=== PATIENT | female | born 1970 | race Two or more races ===

== ENCOUNTER 2025-09-05 09:29 | Inpatient (IN) | payer BC, OTHER ==
[~2025-09-05] VITALS: Ht 157.5 cm; Wt 96.3 kg
--- NOTE | 2025-09-05 10:00 | ED.PDOC ---
GI ASSESSMENT HPI Comments A 55 YEAR OLD FEMALE PRESENTS TO THE ED WITH COMPLAINT OF ABDOMINAL PAIN. PT STATES SHE HAS BEEN HAVING DIFFUSE LOWER ABD PAIN FOR THE PAST 3X DAYS. PT STATES SHE RECENTLY STARTED NEW NUTRITION PROGRAM AND HAS BEEN EATING MORE PROTEIN. PT OTHERWISE STATES SHE HAS HISTORY OF COLON CANCER IN REMISSION. PT HAD RECENT COLONOSCOPY AND STATES SHE HAD POLYPS REMOVED. PT PATIENT DENIES FEVER, CHILLS, SHORTNESS OF BREATH, CHEST PAIN, NAUSEA, VOMITING, HEADACHE, OR OTHER COMPLAINTS. NO OTHER SYMPTOMS OR MODIFYING FACTORS AT THIS TIME. PATIENT IS ALERT, ORIENTED X 4, AND HAS STEADY GAIT. Chief Complaint: Constipation Time Seen by MD: 09:54 Reviewed Notes: Nurses Notes, Medications, Allergies Allergies: Coded Allergies: Metoclopramide (Verified Allergy, Unknown, 09/05/25) Information Source: Patient Mode of Arrival: Ambulatory Timing: Days Duration: Since onset, Days Prehospital treatment: None Quality: Aching, Cramping, Colicky Vomitus: None Stool: Other Severity: Moderate Recent: None Recent Hx of: None Pain Location: Diffuse, RLQ, LLQ Modifying Factors: Nothing Associated sign and symptoms: Abdominal Pain Past Medical History PAST MEDICAL HISTORY: Denies Surgical History: Cholecystectomy TUTORING MANAGER History: Denies all TUTORING MANAGER Hx Family History Family History: Reviewed,noncontributory to illness Social History Smoker: Non-Smoker Alcohol: Denies ETOH Use Drugs: Denies Drug Use Lives In: Home Constitutional: denies: chills, diaphoresis, fatigue, fever, malaise, sweats, weakness, others EENTM: denies: blurred vision, double vision, ear bleeding, ear discharge, ear drainage, ear pain, ear ringing, eye pain, eye redness, hearing loss, mouth pain, mouth swelling, nasal discharge, nose bleeding, nose congestion, nose pain, photophobia, tearing, throat pain, throat swelling, voice changes, others Respiratory: denies: cough, hemoptysis, orthopnea, SOB at rest, shortness of breath, SOB with excertion, stridor, wheezing, others Cardiovascular: denies: chest pain, dizzy spells, diaphoresis, Dyspnea on exertion, edema, irregular heart beat, left arm pain, lightheadedness, palpitations, PND, syncope, others Gastrointestinal: reports: abdominal pain; denies: abdomen distended, blood streaked bowels, constipated, diarrhea, dysphagia, difficulty swallowing, hematemesis, melena, nausea, poor appetite, poor fluid intake, rectal bleeding, rectal pain, vomiting, others Genitourinary: denies: abnormal vagina bleeding, burning, dyspareunia, dysuria, flank pain, frequency, hematuria, incontinence, pain, , vagina discharge, urgency, others Neurological: denies: dizziness, fainting, headache, left sided numbness, left sided weakness, numbness, paresthesia, pre-existing deficit, right sided numbness, right sided weakness, seizure, speech problems, tingling, tremors, weakness, others Musculoskeletal: denies: back pain, gout, joint pain, joint swelling, muscle pain, muscle stiffness, neck pain, others Integumetry: denies: bruises, change in color, change in hair/nails, dryness, laceration, lesions, lumps, rash, wounds, others Allergic/Immunocompromised: denies: Difficulty Healing, Frequent Infections, Hives, Itching, others Hematologic/Lymphatic: denies: anemia, blood clots, easy bleeding, easy bruising, swollen glands, others Endocrine: denies: excessive hunger, excessive sweating, excessive thirst, excessive urination, flushing, intolerance to cold, intolerance to heat, unexplained weight gain, unexplained weight loss, others Psychiatric: denies: anxiety, bipolar disorder, depression, hopeless, panic disorder, schizophrenia, sleepless, suicidal, others All Other Systems: Reviewed and Negative Physical Exam General Appearance: No Apparent Distress, Obese HEENT: Normal ENT Inspection, PERRL/EOMI, Pharynx Normal, TMs Normal Neck: Full Range of Motion, Non-Tender, Normal, Normal Inspection Respiratory: Chest Non-Tender, Lungs Clear, No Accessory Muscle Use, No Respiratory Distress, Normal Breath Sounds Cardiovascular: No Edema, No JVD, No Murmur, No Gallop, Normal Peripheral Pulses, Regular Rate/Rhythm Breast Exam: Deferred Gastrointestinal: Distended (LOWER ABD WITH MILD DISTENTION, NO GUARDING AND REBOUND TENDERNESS. ), LLQ, No Organomegaly, No Pulsatile Mass, Normal Bowel Sounds, RLQ, Soft, Tenderness (LOWER ABD WITH MILD DISTENDED ABD. ) Genitalia: Deferred Pelvic: Normal External Exam Rectal: Deferred Extremities: No calf tenderness, Normal capillary refill, Normal inspection, Normal range of motion, Non-tender, No pedal edema Musculoskeletal : Apperance: Normal Neurologic: Alert, technology assistant II-XII nml as Tested, No Motor Deficits, Normal Affect, Normal Mood, No Sensory Deficits Cerebellar Function: Normal Reflexes: Normal Skin: Dry, Normal Color, Warm Peripheral Pulses: 2+ carotid (R), 2+ carotid (L) Lymphatic: No Adenopathy Was a procedure done? Was a procedure done?: No GI differential Dx Differential Diagnosis: Constipation, Diverticular disease, Esophagitis, Gastritis/PUD, Gastroenteritis, Inflammatory BD, Pancreatitis, UTI, Food Poisoning, Bacterial, Viral X-Ray, Labs, Meds, VS Vital Signs Date Time Temp Pulse Resp B/P (MAP) Pulse Ox O2 Delivery O2 Flow Rate FiO2 09/05/25 15:44 77 16 115/49 (71) 97 09/05/25 13:18 76 16 110/46 (67) 98 09/05/25 11:30 98.2 87 18 112/56 (74) 96 98.2 09/05/25 11:30 87 18 96 Room Air 09/05/25 09:35 98.5 86 18 123/74 95 98.5 Lab Test 09/05/25 10:40 09/05/25 10:22 Range/Units White Blood Count 9.8 4.4-10.8 10^3/uL Red Blood Count 4.74 4.0-5.20 10^6/uL Hemoglobin 13.9 12.2-16.2 g/dL Hematocrit 41.5 36.0-46.0 % Mean Corpuscular Volume 87.5 80.0-100.0 fL Mean Corpuscular Hemoglobin 29.4 28.0-32.0 pg Mean Corpuscular Hemoglobin Concent 33.6 32.0-36.0 g/dL Red Cell Distribution Width 12.9 11.8-14.3 % Platelet Count 227 140-450 10^3/uL Mean Platelet Volume 8.6 6.9-10.8 fL Neutrophils (%) (Auto) 66.2 37.0-80.0 % Lymphocytes (%) (Auto) 20.9 10.0-50.0 % Monocytes (%) (Auto) 9.7 0.0-12.0 % Eosinophils (%) (Auto) 2.3 0.0-7.0 % Basophils (%) (Auto) 0.9 0.0-2.0 % Neutrophils # (Auto) 6.5 1.6-8.6 10 ^3/uL Lymphocytes # (Auto) 2.1 0.4-5.4 10 ^3/uL Monocytes # (Auto) 1.0 0-1.3 10 ^3/uL Eosinophils # (Auto) 0.2 0-0.8 10 ^3/uL Basophils # (Auto) 0.1 0-0.2 10 ^3/uL Nucleated Red Blood Cells 0.0 % Sodium Level 142 136-145 mmol/L Potassium Level 3.7 3.5-5.1 mmol/L Chloride Level 105 98-107 mmol/L Carbon Dioxide Level 26 20-31 mmol/L Anion Gap 11 5-15 Blood Urea Nitrogen 9 9-23 mg/dL Creatinine 0.74 0.550-1.02 mg/dL Glomerular Filtration Rate Calc 96 >90 mL/min BUN/Creatinine Ratio 12.2 10.0-20.0 Serum Glucose 114 H 74-106 mg/dL Calcium Level 9.5 8.7-10.4 mg/dL Total Bilirubin 0.8 0.2-1.0 mg/dL Aspartate Amino Transferase (AST) 53 H 13-40 U/L Alanine Aminotransferase (ALT) 93 H 7-40 U/L Alkaline Phosphatase 145 H 46-116 U/L Total Protein 8.0 5.7-8.2 g/dL Albumin 4.8 3.2-4.8 g/dL Lipase 33 12-53 U/L Urine Color Yellow Yellow Urine Clarity Clear Clear Urine pH 6.0 5.0-9.0 Urine Specific [place] 1.012 1.001-1.035 Urine Protein Negative Negative Urine Ketones Negative Negative Urine Blood Trace H Negative /uL Urine Nitrite Negative Negative Urine Bilirubin Negative Negative Urine Urobilinogen Normal Negative mg/dL Urine Leukocyte Esterase Negative Negative /uL Urine Glucose Normal Normal mg/dL Current Medications Medications (Trade) Dose Ordered Sig/Mark Route Start Time Stop Time Status Last Admin Sodium Chloride 1,000 ml @ 1,000 mls/hr Q1H ONCE IV 09/05/25 11:15 09/05/25 12:14 DC 09/05/25 11:52 Metronidazole 100 ml @ 100 mls/hr ONCE ONCE IV 09/05/25 11:15 09/05/25 12:14 DC 09/05/25 11:51 Levofloxacin/ Dextrose 100 ml @ 100 mls/hr ONCE ONCE IV 09/05/25 11:15 09/05/25 12:14 DC 09/05/25 11:51 Ketorolac Tromethamine (Toradol Injection) 30 mg ONCE ONCE IV 09/05/25 11:15 09/05/25 11:17 DC 09/05/25 11:51 PATIENT: VITALY HUFFCT: [id number]: [id number] : 1970 LOC: ER ROOM / BED: / AGE / SEX: 55 / F ADM STATUS: REG ER SERVICE [id number] ORDERING PHYSICIAN: PAUL SUTTON PROCEDURE(s): ABPL - CT AB PEL WO CON-NO ORAL OR IV REASON: LOWER ABD PAIN WITH POSSIBLE CONSTIPATION ORDER NUMBER(s): [id number], ACCESSION NUMBER(s): [id number] Indication: LOWER ABD PAIN WITH POSSIBLE CONSTIPATION Comparison: None Technique: Helical axial scans were performed through the abdomen and pelvis without intravenous contrast. Subsequently, coronal and sagittal reformations were obtained. Dose lowering techniques have been used including automated exposure control and adjustment of mA and/or kv according to patient size. FINDINGS: Limited evaluation of the vasculature and solid organs due to lack of intravenous contrast. LUNGS BASES: Clear LIVER: Incidental hypoattenuating lesion in the left hepatic lobe measuring 7.4 cm, suboptimally evaluated without intravenous contrast. SPLEEN: Normal GALLBLADDER: Surgically absent. PANCREAS: Normal ADREN left adrenal nodule measuring 1.9 cm with density measurement compatible with an adenoma. AL GLANDS: Normal KIDNEYS: No hydronephrosis or obstructing renal stone. GI: Acute diverticulitis involving the sigmoid colon. No bowel dilation. Appendix not discretely visualized. LYMPH NODES: Normal VASCULAR STRUCTURES: Normal BLADDER: Partially contracted and grossly unremarkable. PELVIC ORGAN: Normal FREE AIR OR FREE FLUID: None OSSEOUS STRUCTURES: Normal SOFT TISSUES: Normal DLP is 1374.1mGy-cm. CTDI vol is 24.5mGy. IMPRESSION: 1. Acute sigmoid diverticulitis. 2. No free air or fluid collection. 3. Incidental hypoattenuating lesion in the left hepatic lobe measuring 7.4 cm, suboptimally evaluated without intravenous contrast. Nonemergent follow-up CT or MRI liver mass protocol recommended for further evaluation. 4. Left adrenal adenoma measuring 1.9 cm. ATED BY: SEBASTIÁN MCKEON MD DICTATED DATE/TIME: 09/05/25 1016 SIGNED BY: SEBASTIÁN MCKEON MD SIGNED DATE/TIME: 09/05/25 1016 CC: X-Ray, Labs, Meds, VS Comment COURSE: EXTERNAL MEDICAL RECORDS REVIEWED: [NONE] INDEPENDENT HISTORIANS: [NONE] SOCIAL DETERMINANTS OF HEALTH: [NONE] LABS ORDERED: CBC, CMP, LIPASE, UA REVIEWED AND INTERPRETED RESULTS: NORMAL EXCEPT ELEVATED LIVER ENZYME. IMAGING ORDERED: CT ABDOMEN PELVIS WITHOUT CONTRAST TREATMENTS ORDERED: 0.9 NS 1L, FLAGYL 500MG IVP, LEVAQUIN 500MG IVP AND TORADOL 30MG IVP PROCEDURES PERFORMED: NONE CRITICAL CARE TIME: NONE I HAVE DISCUSSED THE PATIENT WITH THE ATTENDING PHYSICIAN, DR. HAAS SHE AGREES WITH THE PATIENT'S PLAN OF CARE AND DISPOSITION. PT IS BEING ADMITTED FOR SIGMOID DIVERTICULITIS. PT NEEDS FURTHER WORK UP AND GI CONSULTATION. Time of 1ST Reevaluation: 11:00 Reevaluation 1ST: Unchanged Patient Education/Counseling: Diagnosis, Treatment Family Education/Counseling: Diagnosis, Treatment, No Family Present SEPSIS Sepsis Screen Date sepsis recognized/suspect: Sep 05, 2025 Time Sepsis recognized/suspect: 935 Recent Procedure: No On Antibiotic Therapy: No Respiratory Rate >20: No Heart Rate >90: No Temp<36 C (96.8 F) or >38.3 C: No SBP <90 or MAP <65 mmHG: No New Acute Mental Status Change: No Is the patient on CPAP, BIPAP,: No Physician Orders Ct Ab Pel Wo Con-No Oral Or Iv (09/05/25 09:47) Heplock Iv (09/05/25 ) Admit (09/05/25 16:08) Code Status (09/05/25 16:08) Sodium Chloride 0.9% (09/05/25 16:15) Complete Blood Count (09/06/25 04:00) Comprehensive Metabolic Panel (09/06/25 04:00) Clear Liq Diet (09/05/25 Dinner) Morphine Sulfate Injection (09/05/25 16:15) Notify Md Of Changes From Base (09/05/25 16:08) Ceftriaxone 1gm/50ml (Rocephin) (09/05/25 16:15) Metronidazole 500mg/100ml (Flagyl 500mg/ (09/05/25 16:15) Pantoprazole (Protonix) (09/05/25 16:15) LIVER (09/05/25 16:12) Vital Signs Date Time Temp Pulse Resp B/P (MAP) Pulse Ox O2 Delivery O2 Flow Rate FiO2 09/05/25 15:44 77 16 115/49 (71) 97 09/05/25 13:18 76 16 110/46 (67) 98 09/05/25 11:30 98.2 87 18 112/56 (74) 96 98.2 09/05/25 11:30 87 18 96 Room Air 09/05/25 09:35 98.5 86 18 123/74 95 98.5 Laboratory Tests Test 09/05/25 10:40 White Blood Count 9.8 10^3/uL (4.4-10.8) Medications Medications Dose Ordered Sig/Mark Route Start Time Stop Time Status Last Admin Dose Admin Ketorolac Tromethamine 30 mg ONCE ONCE IV 09/05/25 11:15 09/05/25 11:17 DC 09/05/25 11:51 Levofloxacin/ Dextrose 100 ml @ 100 mls/hr ONCE ONCE IV 09/05/25 11:15 09/05/25 12:14 DC 09/05/25 11:51 Metronidazole 100 ml @ 100 mls/hr ONCE ONCE IV 09/05/25 11:15 09/05/25 12:14 DC 09/05/25 11:51 Sodium Chloride 1,000 ml @ 1,000 mls/hr Q1H ONCE IV 09/05/25 11:15 09/05/25 12:14 DC 09/05/25 11:52 Departure 1 Departure Time of Disposition: 11:00 Impression: Primary Impression: Acute diverticulitis Additional Impressions: Liver lesion, left lobe Adrenal adenoma Qualified Codes: D35.02 - Benign neoplasm of left adrenal gland Disposition: ADMITTED INPATIENT Condition: Serious Critical Care Note Critical Care Time?: No Stability Stability form required: Yes Unstable for transfer: Requires medication, ED Physician Assesment, Possible rapid decline Heart Score Heart Score: Heart Score Response (Comments) Value History N/A 0 EKG N/A 0 Age N/A 0 Risk Factors N/A 0 Troponin N/A 0 Total 0 I personally scribed for PAUL SUTTON ([email or web address]) on 09/05/25 at 10:00. Electronically submitted by Dandy Frausto ([email or web address]). I personally scribed for PAUL SUTTNO ([email or web address]) on 09/05/25 at 10:01. Electronically submitted by Dandy Frausto ([email or web address]). PAUL SUTTON Sep 05, 2025 10:00
--- NOTE | 2025-09-05 10:19 | DVH ---
Indication: LOWER ABD PAIN WITH POSSIBLE CONSTIPATION Comparison: None Technique: Helical axial scans were performed through the abdomen and pelvis without intravenous cont rast. Subsequently, coronal and sagittal reformations were obtained. Dose lowering techniques have been used including automated exposure control and adjustment of mA and /or kv according to patient size. FINDINGS: Limited evaluation of the vasculature and solid organs due to lack of intravenous contrast. LUNGS BASES: Clear LIVER: Incidental hypoattenuating lesion in the left hepatic lobe measuring 7.4 cm, suboptimally eval uated without intravenous contrast. SPLEEN: Normal GALLBLADDER: Surgically absent. PANCREAS: Normal ADREN left adrenal nodule measuring 1.9 cm with density measurement compatible with an adenoma. AL GL ANDS: Normal KIDNEYS: No hydronephrosis or obstructing renal stone. GI: Acute diverticulitis involving the sigmoid colon. No bowel dilation. Appendix not discretely vis ualized. LYMPH NODES: Normal VASCULAR STRUCTURES: Normal BLADDER: Partially contracted and grossly unremarkable. PELVIC ORGAN: Normal FREE AIR OR FREE FLUID: None OSSEOUS STRUCTURES: Normal SOFT TISSUES: Normal DLP is 1374.1mGy-cm. CTDI vol is 24.5mGy. IMPRESSION: 1. Acute sigmoid diverticulitis. 2. No free air or fluid collection. 3. Incidental hypoattenuating lesion in the left hepatic lobe measuring 7.4 cm, suboptimally evaluate d without intravenous contrast. Nonemergent follow-up CT or MRI liver mass protocol recommended for f urther evaluation. 4. Left adrenal adenoma measuring 1.9 cm.
[2025-09-05 10:49] LABS: Hematocrit 41.5 % (36.0-46.0); Hemoglobin 13.9 g/dL (12.2-16.2); Mean Corpuscular Hemoglobin 29.4 pg (28.0-32.0); Mean Corpuscular Volume 87.5 fL (80.0-100.0); Nucleated Red Blood Cells % 0.0 %
[2025-09-05 11:03] LABS: Albumin 4.8 g/dL (3.2-4.8); Anion Gap 11 (5-15); BUN/Creatinine Ratio 12.2 (10.0-20.0); Calcium 9.5 mg/dL (8.7-10.4); Carbon Dioxide 26 mmol/L (20-31); Chloride 105 mmol/L (98-107); Potassium 3.7 mmol/L (3.5-5.1); Sodium 142 mmol/L (136-145); Total Protein 8.0 g/dL (5.7-8.2)
[2025-09-05 11:04] LABS: Alanine Aminotransferase 93 U/L (7-40); Alkaline Phosphatase 145 U/L (46-116); Bilirubin, Total 0.8 mg/dL (0.2-1.0); Blood Urea Nitrogen 9 mg/dL (9-23); Glucose 114 mg/dL (74-106)
[2025-09-05 11:26] LABS: Urine Protein, UAD Negative (Negative)
[2025-09-05] MEDS: KETOROLAC TROMETH 30 MG/ML 1ML VIAL IV ONE (11:51)
[2025-09-05 11:52] LABS: Lipase 33 U/L (12-53)
[2025-09-05] MEDS: SODIUM CHLORIDE 0.9% 1,000 ML IV ONE (11:52)
--- NOTE | 2025-09-05 16:12 | DVHHP2 ---
BRIGID MYERS RESIDENT 09/05/25 1612: History of Present Illness History of Present Illness Patient is 55 years old female with past medical history of colon polyp, GERD, insomnia, anxiety, hyperlipidemia came with a complaint of abdominal pain. As per patient she has been having abdominal pain started 3 days before, gradual onset, 08/08, crampy in nature, increased with the movement, no relieving factor. Patient denied any acute nausea or vomiting or diarrhea or fever, joint pain or swelling or eating abdominal food. Patient reported she had colonoscopy done in June [address] Ivey which revealed 2 polyps was removed. Patient patient reported her father had colon cancer. Initial lab workup revealed transaminitis with AST 53, ALT 93, alkaline phosphatase 145. Lipase with a normal limit. CT abdomen and pelvis revealed-Acute sigmoid diverticulitis. Incidental hypoattenuating lesion in the left hepatic lobe measuring 7.4 cm, suboptimally evaluated without intravenous contrast. Nonemergent follow-up CT or MRI liver mass protocol recommended for further evaluation.Left adrenal adenoma measuring 1.9 cm. PMH-colon polyp, GERD, insomnia, anxiety, hyperlipidemia PSH- none F/H-dad had colon cancer Allergy- metoclopramide Personal History/ Social History- Review of Systems Review of Systems Cardiovascular- deny acute chest pain or shortness of breath or cough or palpitation Musculoskeletal-denies acute joint swelling or tenderness or redness Neurological- denies acute dysarthria, dysphagia, change in vision Psychiatry- denies depression or SI or HI Skin- denies acute rash or purpura Allergies: Coded Allergies: Metoclopramide (Verified Allergy, Unknown, 09/05/25) Medications Current Medications Medications Dose Ordered Sig/Mark Route Start Time Stop Time Status Last Admin Dose Admin Sodium Chloride 1,000 ml @ 60 mls/hr [id number] IV 09/05/25 16:15 UNV Morphine Sulfate 2 mg Q4HPRN PRN IV 09/05/25 16:15 UNV Exam Vital Signs Vital Signs Date Time Temp Pulse Resp B/P (MAP) Pulse Ox O2 Delivery O2 Flow Rate FiO2 09/05/25 15:44 77 16 115/49 (71) 97 09/05/25 11:30 98.2 98.2 09/05/25 11:30 Room Air Exam General examination- awake, alert, oriented HEENT- PEERLA, no acute nasal discharge Cardiovascular- S1-S2 audible, rate and rhythm regular, no murmur Respiratory- CTAB, no wheeze or rhonchi Gastrointestinal-diffuse abdominal tenderness present++, bowel sound+. Nondistended Musculoskeletal-no acute joint swelling or tenderness or redness Lower extremity- no leg edema Neurological- cranial nerves intact, no acute dysarthria or dysphagia Psychiatry- denies depression or SI or HI Skin- no acute rash or purpura Labs/Xrays Labs Test 09/05/25 10:40 09/05/25 10:22 Range/Units White Blood Count 9.8 4.4-10.8 10^3/uL Red Blood Count 4.74 4.0-5.20 10^6/uL Hemoglobin 13.9 12.2-16.2 g/dL Hematocrit 41.5 36.0-46.0 % Mean Corpuscular Volume 87.5 80.0-100.0 fL Mean Corpuscular Hemoglobin 29.4 28.0-32.0 pg Mean Corpuscular Hemoglobin Concent 33.6 32.0-36.0 g/dL Red Cell Distribution Width 12.9 11.8-14.3 % Platelet Count 227 140-450 10^3/uL Mean Platelet Volume 8.6 6.9-10.8 fL Neutrophils (%) (Auto) 66.2 37.0-80.0 % Lymphocytes (%) (Auto) 20.9 10.0-50.0 % Monocytes (%) (Auto) 9.7 0.0-12.0 % Eosinophils (%) (Auto) 2.3 0.0-7.0 % Basophils (%) (Auto) 0.9 0.0-2.0 % Neutrophils # (Auto) 6.5 1.6-8.6 10 ^3/uL Lymphocytes # (Auto) 2.1 0.4-5.4 10 ^3/uL Monocytes # (Auto) 1.0 0-1.3 10 ^3/uL Eosinophils # (Auto) 0.2 0-0.8 10 ^3/uL Basophils # (Auto) 0.1 0-0.2 10 ^3/uL Nucleated Red Blood Cells 0.0 % Sodium Level 142 136-145 mmol/L Potassium Level 3.7 3.5-5.1 mmol/L Chloride Level 105 98-107 mmol/L Carbon Dioxide Level 26 20-31 mmol/L Anion Gap 11 5-15 Blood Urea Nitrogen 9 9-23 mg/dL Creatinine 0.74 0.550-1.02 mg/dL Glomerular Filtration Rate Calc 96 >90 mL/min BUN/Creatinine Ratio 12.2 10.0-20.0 Serum Glucose 114 H 74-106 mg/dL Calcium Level 9.5 8.7-10.4 mg/dL Total Bilirubin 0.8 0.2-1.0 mg/dL Aspartate Amino Transferase (AST) 53 H 13-40 U/L Alanine Aminotransferase (ALT) 93 H 7-40 U/L Alkaline Phosphatase 145 H 46-116 U/L Total Protein 8.0 5.7-8.2 g/dL Albumin 4.8 3.2-4.8 g/dL Lipase 33 12-53 U/L Urine Color Yellow Yellow Urine Clarity Clear Clear Urine pH 6.0 5.0-9.0 Urine Specific [place] 1.012 1.001-1.035 Urine Protein Negative Negative Urine Ketones Negative Negative Urine Blood Trace H Negative /uL Urine Nitrite Negative Negative Urine Bilirubin Negative Negative Urine Urobilinogen Normal Negative mg/dL Urine Leukocyte Esterase Negative Negative /uL Urine Glucose Normal Normal mg/dL SEPSIS Sepsis Screen Date sepsis recognized/suspect: Sep 05, 2025 Time Sepsis recognized/suspect: 935 Recent Procedure: No On Antibiotic Therapy: No Respiratory Rate >20: No Heart Rate >90: No Temp<36 C (96.8 F) or >38.3 C: No SBP <90 or MAP <65 mmHG: No New Acute Mental Status Change: No Is the patient on CPAP, BIPAP,: No Physician Orders Ct Ab Pel Wo Con-No Oral Or Iv (09/05/25 09:47) Heplock Iv (09/05/25 ) Admit (09/05/25 16:08) Code Status (09/05/25 16:08) Sodium Chloride 0.9% (09/05/25 16:15) Complete Blood Count (09/06/25 04:00) Comprehensive Metabolic Panel (09/06/25 04:00) Clear Liq Diet (09/05/25 Dinner) Morphine Sulfate Injection (09/05/25 16:15) Notify Of Changes From Base (09/05/25 16:08) Ceftriaxone Ivpb Rocephin (09/05/25 16:15) Metronidazole Ivpb Flagyl (09/05/25 16:15) Pantoprazole (Protonix) (09/05/25 16:15) Vital Signs Date Time Temp Pulse Resp B/P (MAP) Pulse Ox O2 Delivery O2 Flow Rate FiO2 09/05/25 15:44 77 16 115/49 (71) 97 09/05/25 13:18 76 16 110/46 (67) 98 09/05/25 11:30 98.2 87 18 112/56 (74) 96 98.2 09/05/25 11:30 87 18 96 Room Air 09/05/25 09:35 98.5 86 18 123/74 95 98.5 Laboratory Tests Test 09/05/25 10:40 White Blood Count 9.8 10^3/uL (4.4-10.8) Medications Medications Dose Ordered Sig/Mark Route Start Time Stop Time Status Last Admin Dose Admin Ketorolac Tromethamine 30 mg ONCE ONCE IV 09/05/25 11:15 09/05/25 11:17 DC 09/05/25 11:51 30 MG Levofloxacin/ Dextrose 100 ml @ 100 mls/hr ONCE ONCE IV 09/05/25 11:15 09/05/25 12:14 DC 09/05/25 11:51 100 MLS/HR Metronidazole 100 ml @ 100 mls/hr ONCE ONCE IV 09/05/25 11:15 09/05/25 12:14 DC 09/05/25 11:51 100 MLS/HR Sodium Chloride 1,000 ml @ 1,000 mls/hr Q1H ONCE IV 09/05/25 11:15 09/05/25 12:14 DC 09/05/25 11:52 1,000 MLS/HR Assessment/Plan Assessment/Plan Assessment and plan # acute sigmoid diverticulitis # diffuse acute abdominal pain likely due to above # history of colonic polyp -CT abdomen and pelvis revealed acute sigmoid diverticulitis -continue ceftriaxone and metronidazole as prescribed -monitor vitals -clear liquid diet # Transaminitis #hypoattenuating lesion in the left hepatic lobe measuring 7.4 cm, -ordered ultrasound of the liver for further evaluation and care -monitor liver function test # GERD -continue pantoprazole as prescribed # hyperlipidemia -atorvastatin as prescribed # anxiety, insomnia -resume home medication trazodone, sertraline #Left adrenal adenoma measuring 1.9 cm. -follow up outpatient with the primary care physician Goals of care, Code status full code ; discussed with >15 minutes PUD prophylaxis: Pantoprazole DVT prophylaxis: Patient ambulating Plan discussed with Dr. Wright , nursing staff, Total time spent on patient evaluation, chart review, assessment and plan, discussion discussion >35 minutes Plan discussed with: Patient, Daughter, Other (RN) My Orders Orders - BRIGID MYERS Procedure Category Date Status Time Admit ADMIT 09/05/25 Transmitted 16:08 Code Status CODE 09/05/25 Transmitted 16:08 Sodium Chloride 0.9% PHA 09/05/25 Logged 16:15 Complete Blood Count LAB 09/06/25 Verified 04:00 Comprehensive LAB 09/06/25 Verified Metabolic Panel 04:00 Clear Liq Diet DIET 09/05/25 Transmitted Dinner Morphine Sulfate PHA 09/05/25 Logged Injection 16:15 Notify Md Of Changes RAUL 09/05/25 In Process From Base 16:08 Ceftriaxone Ivpb PHA 09/05/25 Transmitted Rocephin 16:15 Metronidazole Ivpb PHA 09/05/25 Transmitted Flagyl 16:15 Pantoprazole PHA 09/05/25 Verified (Protonix) 16:15 Date of Service: Sep 05, 2025 Billing Provider: CHIQUIS WRIGHT MD Common Visit Codes: [id number] INP/OBS CARE (HIGH) Secondary Visit Codes: 22358-[id number] CARE PLAN 30 MINUTES Date of Service: Sep 05, 2025 Billing Provider: CHIQUIS WRIGHT MD, KENNETH MD 09/05/252023: Review of Systems Allergies: Coded Allergies: Metoclopramide (Verified Allergy, Unknown, 09/05/25) Common Visit Codes: [id number] INP/OBS CARE (HIGH) BRIGID MYERS Sep 05, 2025 16:12 CHIQUIS WRIGHT MD Sep 05, 2025 20:24
[2025-09-05] MEDS ORDERED: SODIUM CHLORIDE 0.9% 1,000 ML IV SCH (16:15)
--- NOTE | 2025-09-05 16:45 | DVH ---
Technique: Real-time ultrasound imaging of the abdomen was performed with grayscale and color Doppler . Indication: Transaminitis, rule out acute hepatitis Comparison: None Findings: Liver measures 14.3 cm. It is increased in echogenicity and echotexture. There is a left hepatic l obe heterogeneous mass measuring 7.4 x 6.9 cm. There is internal vascularity. Left hepatic lobe echo genic mass measuring 3.3 cm. Gallbladder is removed. The common bile duct measures 5 mm. No intrahepatic biliary ductal dilatation. The right kidney measures 10.7 cm. There is no hydronephrosis or sonographic evidence of nephrolithia sis. The visualized portion of the pancreas is unremarkable. Impression: Heterogeneous masses within the liver most prominently in the left hepatic lobe measuring 7.4 cm. Re commend multiphasic MRI abdomen with and without contrast. Cholecystectomy.
[2025-09-05] MEDS ORDERED: ONDANSETRON HCL 4 MG/2 ML VIAL IV PRN (17:00)
[2025-09-05] MEDS: MORPHINE SULFATE 4 MG/ML SYR/VIAL IV PRN (17:01)
[2025-09-05] MEDS: PANTOPRAZOLE 40 MG/10 ML VIAL INJ IV SCH (17:02)
[2025-09-05] MEDS: ONDANSETRON HCL 4 MG/2 ML VIAL ONE (17:02)
[2025-09-05 17:14] VITALS: PULSE 73; RESP 18; O2SAT 96
[2025-09-05] MEDS ORDERED: ENOXAPARIN SOD 40 MG/0.4 ML SYRINGE SC SCH (18:00)
[2025-09-05 18:28] VITALS: BP 118/55; PULSE 74; RESP 18; TEMP 97.9; O2SAT 96
[2025-09-05 18:39] VITALS: PULSE 79; RESP 18; O2SAT 99
[2025-09-05] MEDS: SODIUM CHLORIDE 0.9% 1,000 ML IV SCH (18:39)
[2025-09-05] MEDS ORDERED: CHOL20003 PO (18:56)
[2025-09-05] MEDS ORDERED: TRAZ-184 PO (18:56)
[2025-09-05] MEDS ORDERED: SERT-160 PO (18:56)
[2025-09-05] MEDS ORDERED: ROSU20TA56 PO (18:56)
--- NOTE | 2025-09-05 18:59 | DVH ---
CHEST RADIOGRAPH Indication: Metastasis lesion Technique: XY CHEST XRAY 1 VIEW Comparison: None FINDINGS: The cardiac silhouette is unremarkable. The lungs demonstrate basilar airspace opacity. The pulmonary vasculature is unremarkable. There is no pleural effusion. There is no pneumothorax. IMPRESSION: Left basilar airspace opacities
[2025-09-05 22:00] VITALS: BP 128/81; PULSE 75; RESP 16; TEMP 97.1; O2SAT 95
[2025-09-05] MEDS: ATORVASTATIN 20 MG TAB PO SCH (22:24)
[2025-09-06] VITALS (8 sets, daily range): BP systolic 109–141; BP diastolic 65–83; PULSE 19–75; RESP 16–20; TEMP 96.8–98.2; O2SAT 0–99
[2025-09-06 05:57] LABS: Hematocrit 36.8 % (36.0-46.0); Hemoglobin 12.4 g/dL (12.2-16.2); Mean Corpuscular Hemoglobin 29.3 pg (28.0-32.0); Mean Corpuscular Volume 86.8 fL (80.0-100.0); Nucleated Red Blood Cells % 0.0 %
[2025-09-06 06:09] LABS: Albumin 4.0 g/dL (3.2-4.8); Anion Gap 10 (5-15); BUN/Creatinine Ratio 19.7 (10.0-20.0); Bilirubin, Total 0.5 mg/dL (0.2-1.0); Blood Urea Nitrogen 12 mg/dL (9-23); Calcium 9.0 mg/dL (8.7-10.4); Carbon Dioxide 26 mmol/L (20-31); Glucose 103 mg/dL (74-106); Potassium 3.7 mmol/L (3.5-5.1); Sodium 144 mmol/L (136-145); Total Protein 6.7 g/dL (5.7-8.2)
[2025-09-06 06:18] LABS: Alanine Aminotransferase 101 U/L (7-40); Alkaline Phosphatase 148 U/L (46-116); Chloride 108 mmol/L (98-107)
--- NOTE | 2025-09-06 08:55 | DVHPNRES ---
Progress Note Date Seen: Sep 06, 2025 Resident Creating Document: BRIGID MYERS RESIDENT Medical Necessity Reason Pt with a Central, PICC or Fol: No Subjective Review of Systems Patient is 55 years old female with past medical history of colon polyp, GERD, insomnia, anxiety, hyperlipidemia came with a complaint of abdominal pain. As per patient she has been having abdominal pain started 3 days before, gradual onset, 9/10, crampy in nature, increased with the movement, no relieving factor. Patient denied any acute nausea or vomiting or diarrhea or fever, joint pain or swelling or eating abdominal food. Patient reported she had colonoscopy done in June [address] Ivey which revealed 2 polyps was removed. Patient patient reported her father had colon cancer. Initial lab workup revealed transaminitis with AST 53, ALT 93, alkaline phosphatase 145. Lipase with a normal limit. CT abdomen and pelvis revealed-Acute sigmoid diverticulitis. Incidental hypoattenuating lesion in the left hepatic lobe measuring 7.4 cm, suboptimally evaluated without intravenous contrast. Nonemergent follow-up CT or MRI liver mass protocol recommended for further evaluation.Left adrenal adenoma measuring 1.9 cm. PMH-colon polyp, GERD, insomnia, anxiety, hyperlipidemia PSH- none F/H-dad had colon cancer Allergy- metoclopramide Personal History/ Social History-, denies smoking/alcoholism/drug abuse, lives with family Patient was seen today at bedside, labs and chart reviewed. patient reported feeling better today, pain is improving, tolerating clear liquid. Patient on ceftriaxone and metronidazole. #Acute on Chronic alcoholic Pancreatitis #Lactic acidosis likely due to above # acute gastroenteritis #Hypokalemia-replenished #Possible MARIA LUISA on CKD likely due to VMN/Hemodynamically mediated #Heavy Alcohol Use #Normocytic Anemia #Hypertension #Type 2 Diabetes Mellitus 2 #Peripheral neuropathy #Obesity Objective vital signs Vital Sign Date Time Temp Pulse Resp B/P (MAP) Pulse Ox O2 Delivery O2 Flow Rate FiO2 09/06/25 05:00 98.1 71 16 118/77 (91) 96 98.1 09/05/25 18:39 Room Air* 0 21 Total Intake and Output 09/05/25 09/05/25 09/06/25 15:00 23:00 07:00 Intake Total 1200 ml 200 ml Balance 1200 ml 200 ml medications Current Medications Medications Dose Ordered Sig/Mark Route Start Time Stop Time Status Last Admin Dose Admin Morphine Sulfate 2 mg Q4HPRN PRN IV 09/05/25 16:15 09/06/25 03:49 2 MG Ceftriaxone Sodium 50 ml @ 100 mls/hr DAILY@09 IV 09/05/25 16:15 09/05/25 17:00 100 MLS/HR Ondansetron HCl 4 mg Q4HPRN PRN IV 09/05/25 17:00 Pantoprazole Sodium 40 mg DAILY IV 09/06/25 10:00 Metronidazole 100 ml @ 100 mls/hr Q8HR IV 09/05/25 22:00 09/06/25 04:43 100 MLS/HR Trazodone HCl 100 mg HS PO 09/05/25 22:00 09/05/25 22:24 100 MG Sertraline HCl 100 mg DAILY PO 09/06/25 10:00 Atorvastatin Calcium 40 mg HS PO 09/05/25 22:00 09/05/25 22:24 40 MG Examination General examination- awake, alert, oriented HEENT- PEERLA, no acute nasal discharge Cardiovascular- S1-S2 audible, rate and rhythm regular, no murmur Respiratory- CTAB, no wheeze or rhonchi Gastrointestinal-diffuse abdominal tenderness present++, bowel sound+. Nondistended Musculoskeletal-no acute joint swelling or tenderness or redness Lower extremity- no leg edema Neurological- cranial nerves intact, no acute dysarthria or dysphagia Psychiatry- denies depression or SI or HI Skin- no acute rash or purpura laboratory and microbiology Laboratory Tests 09/06/25 05:27 Test 09/06/25 05:27 Range/Units Serum Glucose 103 74-106 mg/dL Problem List/Assessment/Plan Problem List/Assessment/Plan Assessment and plan # acute sigmoid diverticulitis # diffuse acute abdominal pain likely due to above # history of colonic polyp # history of hepatic hemangioma -CT abdomen and pelvis revealed acute sigmoid diverticulitis -continue ceftriaxone and metronidazole as prescribed -monitor vitals -clear liquid diet - CT abdomen and pelvis triple phase/hepatic protocol-Stable mild acute uncomplicated sigmoid diverticulitis.Left hepatic hemangioma. # Transaminitis #hypoattenuating lesion in the left hepatic lobe measuring 7.4 cm, -ordered ultrasound of the liver for further evaluation and care -monitor liver function test # GERD -continue pantoprazole as prescribed # hyperlipidemia -atorvastatin as prescribed # anxiety, insomnia -resume home medication trazodone, sertraline #Left adrenal adenoma measuring 1.9 cm. -follow up outpatient with the primary care physician Goals of care, Code status full code ; discussed with >15 minutes PUD prophylaxis: Pantoprazole DVT prophylaxis: Patient ambulating Plan discussed with Dr. Wright , nursing staff, Total time spent on patient evaluation, chart review, assessment and plan, discussion discussion >35 minutes Plan discussed with: Patient, Daughter, Other (RN Plan discussed with: Patient, Other (RN) My Orders My Orders Orders - BRIGID MYERS Procedure Category Date Status Time Admit ADMIT 09/05/25 Transmitted 16:08 Code Status CODE 09/05/25 Transmitted 16:08 Clear Liq Diet DIET 09/05/25 Transmitted Dinner Notify Of Changes RAUL 09/05/25 In Process From Base 16:08 Ceftriaxone 1gm/50ml PHA 09/05/25 In Process (Rocephin) 16:15 LIVER US 09/05/25 Resulted 16:12 Morphine Sulfate PHA 09/05/25 In Process Injection 16:15 Acute Hepatitis Panel LAB 09/05/25 In Process 16:39 Chest Xray 1 View XY 09/05/25 Resulted 18:08 Trazodone Hcl PHA 09/05/25 In Process (Desyrel) 22:00 Sertraline Hcl PHA 09/06/25 In Process (Zoloft) 10:00 Atorvastatin (Lipitor) PHA 09/05/25 In Process 22:00 Vitamin B12 LAB 09/06/25 In Process 06:38 Vitamin D, 25-Hydroxy LAB 09/06/25 In Process 06:38 Folate (Folic Acid) LAB 09/06/25 In Process 06:38 Date of Service: Sep 06, 2025 Billing Provider: BRIGID MYERS Date of Service: Sep 06, 2025 Billing Provider: BRIGID MYERS Common Visit Codes: [id number] INP/OBS CARE(HIGH) BRIGID MYERS Sep 06, 2025 08:55 CHIQUIS WRIGHT MD Sep 06, 2025 20:06
[2025-09-06] MEDS: SERTRALINE HCL 50 MG TAB PO SCH (09:15)
[2025-09-06] MEDS: PANTOPRAZOLE 40 MG/10 ML VIAL INJ IV SCH (09:15)
--- NOTE | 2025-09-06 13:36 | DVH ---
Exam: CT CT AB PELVIS W WO CON-IV ONLY History: HEMANGIOMA/LIVER MASS COMPARISON: CT CT AB PEL WO CON-NO ORAL OR IV on DOS: 09/05/25 Technique: Multidetector spiral CT of the abdomen and pelvis was performed from lung bases to pubic s ymphysis. Intravenous contrast was administered during this examination. Portal venous imaging was o btained. Axial, coronal and sagittal multiplanar reformats were performed by the technologist on a [employer] workstation. Radiation Dose : 1. Abdomen/Pelvis: CTDIvol 29.91mGy, DLP 3227.28 mGy*cm. CONTRAST: Type of contrast: Omnipaque 350 Contrast injected: 100 ml Findings: Lung Bases: No acute or significant lung base finding. Normal heart size. No pleural or pericardial effusion. Liver: Hypervascular mass centered within hepatic segment 2 demonstrating discontinuous peripheral no dular enhancement matching arterial blood pool. No additional liver lesions. No abnormal arterial enh ancement with washout. Gallbladder and biliary Tree: Gallbladder is surgically absent. Spleen: Unremarkable Pancreas: The pancreas is normal in appearance without focal lesions or abnormal enhancement. Adrenal Glands: People left adrenal anal measuring 1.9 cm Kidneys: No hydronephrosis. Bladder: Unremarkable Bowel: Grossly stable mild inflammatory changes surrounding the proximal and mid sigmoid colon. Ascites: Absent Lymphadenopathy: No mesenteric, retroperitoneal or periportal lymphadenopathy. Abdominal wall and Mesentery: Unremarkable. Vasculature: The visualized abdominal aorta is normal in size and caliber. Abdominal and pelvic vess els demonstrate normal enhancement. Pelvic Organs: Unremarkable Musculoskeletal: No aggressive focal bony lesions, acute fractures or dislocation. IMPRESSION: Stable mild acute uncomplicated sigmoid diverticulitis. Left hepatic hemangioma. Radiation optimization: All CT scans at this facility use at least one of these dose optimization anamaria hniques: automated exposure control mA and/or kV adjustment per patient size (includes targeted exam s where dose is matched to clinical indication) or iterative reconstruction.
[2025-09-07 01:00] VITALS: BP 125/69; PULSE 65; RESP 16; TEMP 98; O2SAT 98
[2025-09-07 05:00] VITALS: BP 126/78; PULSE 71; RESP 16; TEMP 97.7; O2SAT 97
[2025-09-07] MEDS: ACETAMINOPHEN 325 MG TAB PO PRN (05:35)
[2025-09-07 05:41] LABS: Hematocrit 36.9 % (36.0-46.0); Hemoglobin 12.8 g/dL (12.2-16.2); Mean Corpuscular Hemoglobin 29.5 pg (28.0-32.0); Mean Corpuscular Volume 85.3 fL (80.0-100.0); Nucleated Red Blood Cells % 0.0 %
[2025-09-07 06:05] LABS: Albumin 4.0 g/dL (3.2-4.8); Anion Gap 12 (5-15); BUN/Creatinine Ratio 10.3 (10.0-20.0); Calcium 9.1 mg/dL (8.7-10.4); Carbon Dioxide 23 mmol/L (20-31); Glucose 103 mg/dL (74-106); Magnesium 2.0 mg/dL (1.6-2.6); Potassium 3.6 mmol/L (3.5-5.1); Sodium 145 mmol/L (136-145); Total Protein 6.8 g/dL (5.7-8.2)
[2025-09-07 06:06] LABS: Bilirubin, Total 0.5 mg/dL (0.2-1.0)
[2025-09-07 06:15] LABS: Alanine Aminotransferase 82 U/L (7-40); Alkaline Phosphatase 170 U/L (46-116); Blood Urea Nitrogen 6 mg/dL (9-23); Chloride 110 mmol/L (98-107)
[2025-09-07 08:15] VITALS: O2SAT 0
[2025-09-07] MEDS: IOHEXOL 300 MG/ML 100ML BOTTLE IJ ONE (08:15)
[2025-09-07 09:00] VITALS: BP 125/84; PULSE 68; RESP 16; TEMP 97; O2SAT 97
[2025-09-07 11:36] LABS: Hepatitis B Surface Antigen Negative (Negative)
[2025-09-07] MEDS ORDERED: CEPH250C PO (11:36)
[2025-09-07] MEDS ORDERED: MET500T PO (11:36)
--- NOTE | 2025-09-07 11:45 | DVHDSRES ---
Discharge Summary Date of Admission Resident Creating Document: BRIGID MYERS RESIDENT Sep 05, 2025 at 16:08 Date of Discharge: Sep 07, 2025 Admitting Diagnosis Acute sigmoid colitis Labs/Diagnostic Data: Laboratory Results Test 09/07/25 05:23 09/06/25 05:27 09/06/25 05:22 09/05/25 18:37 White Blood Count 6.0 10^3/uL (4.4-10.8) Red Blood Count 4.32 10^6/uL (4.0-5.20) Hemoglobin 12.8 g/dL (12.2-16.2) Hematocrit 36.9 % (36.0-46.0) Mean Corpuscular Volume 85.3 fL (80.0-100.0) Mean Corpuscular Hemoglobin 29.5 pg (28.0-32.0) Mean Corpuscular Hemoglobin Concent 34.6 g/dL (32.0-36.0) Red Cell Distribution Width 12.4 % (11.8-14.3) Platelet Count 221 10^3/uL (140-450) Mean Platelet Volume 9.0 fL (6.9-10.8) Neutrophils (%) (Auto) 66.6 % (37.0-80.0) Lymphocytes (%) (Auto) 20.7 % (10.0-50.0) Monocytes (%) (Auto) 8.2 % (0.0-12.0) Eosinophils (%) (Auto) 3.6 % (0.0-7.0) Basophils (%) (Auto) 0.9 % (0.0-2.0) Neutrophils # (Auto) 4.0 10 ^3/uL (1.6-8.6) Lymphocytes # (Auto) 1.2 10 ^3/uL (0.4-5.4) Monocytes # (Auto) 0.5 10 ^3/uL (0-1.3) Eosinophils # (Auto) 0.2 10 ^3/uL (0-0.8) Basophils # (Auto) 0.1 10 ^3/uL (0-0.2) Nucleated Red Blood Cells 0.0 % Sodium Level 145 mmol/L (136-145) Potassium Level 3.6 mmol/L (3.5-5.1) Chloride Level 110 mmol/L (98-107) Carbon Dioxide Level 23 mmol/L (20-31) Anion Gap 12 (5-15) Blood Urea Nitrogen 6 mg/dL (9-23) Creatinine 0.58 mg/dL (0.550-1.02) Glomerular Filtration Rate Calc 107 mL/min (>90) BUN/Creatinine Ratio 10.3 (10.0-20.0) Serum Glucose 103 mg/dL (74-106) Calcium Level 9.1 mg/dL (8.7-10.4) Magnesium Level 2.0 mg/dL (1.6-2.6) Total Bilirubin 0.5 mg/dL (0.2-1.0) Aspartate Amino Transferase (AST) 31 U/L (13-40) Alanine Aminotransferase (ALT) 82 U/L (7-40) Alkaline Phosphatase 170 U/L (46-116) Total Protein 6.8 g/dL (5.7-8.2) Albumin 4.0 g/dL (3.2-4.8) Hemoglobin A1c 5.3 % A1C (<5.7) Vitamin D 25-Hydroxy 40.0 ng/mL (30.0-100) Folic Acid > 24.00 ng/mL (>5.38) Tumor Marker Alpha Fetoprotein 2.0 ng/mL (0.0-9.2) Carcinoembryonic Antigen 1.90 ng/mL (<=5.0) Test 09/05/25 10:40 09/05/25 10:22 Lipase 33 U/L (12-53) Hepatitis B Surface Antigen Negative (Negative) Urine Color Yellow (Yellow) Urine Clarity Clear (Clear) Urine pH 6.0 (5.0-9.0) Urine Specific Mobile 1.012 (1.001-1.035) Urine Protein Negative (Negative) Urine Ketones Negative (Negative) Urine Blood Trace /uL (Negative) Urine Nitrite Negative (Negative) Urine Bilirubin Negative (Negative) Urine Urobilinogen Normal mg/dL (Negative) Urine Leukocyte Esterase Negative /uL (Negative) Urine Glucose Normal mg/dL (Normal) Other Laboratory Tests 09/07/25 05:23 Brief Hx & Hospital Course: Patient is 55 years old female with past medical history of colon polyp, GERD, insomnia, anxiety, hyperlipidemia came with a complaint of abdominal pain. As per patient she has been having abdominal pain started 3 days before, gradual onset, 08/08, crampy in nature, increased with the movement, no relieving factor. Patient denied any acute nausea or vomiting or diarrhea or fever, joint pain or swelling or eating abdominal food. Patient reported she had colonoscopy done in June [address] Ivey which revealed 2 polyps was removed. Patient patient reported her father had colon cancer. Initial lab workup revealed transaminitis with AST 53, ALT 93, alkaline phosphatase 145. Lipase with a normal limit. CT abdomen and pelvis revealed-Acute sigmoid diverticulitis. Incidental hypoattenuating lesion in the left hepatic lobe measuring 7.4 cm, suboptimally evaluated without intravenous contrast. Nonemergent follow-up CT or MRI liver mass protocol recommended for further evaluation.Left adrenal adenoma measuring 1.9 cm. Ultrasound of the liver-Heterogeneous masses within the liver most prominently in the left hepatic lobe measuring 7.4 cm. Recommend multiphasic MRI abdomen with and without contrast. Cholecystectomy. CT abdomen and pelvis triphasic/hepatic protocol-Stable mild acute uncomplicated sigmoid diverticulitis.Left hepatic hemangioma. Patient was treated conservatively with IV fluid and IV antibiotic ceftriaxone and metronidazole. Patient's symptoms improved pain improved, tolerated liquid diet well. Patient is being discharged home with the Keflex 500 mg p.o. b.i.d. and metronidazole 5 mg p.o. t.i.d. for 7 days. Patient was advised to follow up with the discharge clinic 1 week, also to follow up with the primary care physician in 1-2 weeks, follow up with the paring machine operator in 1-2 weeks for further evaluation and care of diverticulitis. Patient's meds were sent to the pharmacy electronically. Patient was hemodynamically stable on discharge Operations or Procedures [place] [id number] Ph: [phone] DIAGNOSTIC IMAGING Diagnostic Imaging Report : [id number] Signed PATIENT: ROSA HUFF ACCT: [id number] UNIT: [id number] : 1970 LOC: ER ROOM / BED: / AGE / SEX: 55 / F ADM STATUS: REG ER SERVICE 0947 ORDERING PHYSICIAN: PAUL SUTTON PROCEDURE(s): ABPL - CT AB PEL WO CON-NO ORAL OR IV REASON: LOWER ABD PAIN WITH POSSIBLE CONSTIPATION ORDER NUMBER(s): [id number], ACCESSION NUMBER(s): [id number] Indication: LOWER ABD PAIN WITH POSSIBLE CONSTIPATION Comparison: None Technique: Helical axial scans were performed through the abdomen and pelvis without intravenous contrast. Subsequently, coronal and sagittal reformations were obtained. Dose lowering techniques have been used including automated exposure control and adjustment of mA and/or kv according to patient size. FINDINGS: Limited evaluation of the vasculature and solid organs due to lack of intravenous contrast. LUNGS BASES: Clear LIVER: Incidental hypoattenuating lesion in the left hepatic lobe measuring 7.4 cm, suboptimally evaluated without intravenous contrast. SPLEEN: Normal GALLBLADDER: Surgically absent. PANCREAS: Normal ADREN left adrenal nodule measuring 1.9 cm with density measurement compatible with an adenoma. AL GLANDS: Normal KIDNEYS: No hydronephrosis or obstructing renal stone. GI: Acute diverticulitis involving the sigmoid colon. No bowel dilation. Appendix not discretely visualized. LYMPH NODES: Normal VASCULAR STRUCTURES: Normal BLADDER: Partially contracted and grossly unremarkable. PELVIC ORGAN: Normal FREE AIR OR FREE FLUID: None OSSEOUS STRUCTURES: Normal SOFT TISSUES: Normal DLP is 1374.1mGy-cm. CTDI vol is 24.5mGy. IMPRESSION: 1. Acute sigmoid diverticulitis. 2. No free air or fluid collection. 3. Incidental hypoattenuating lesion in the left hepatic lobe measuring 7.4 cm, suboptimally evaluated without intravenous contrast. Nonemergent follow-up CT or MRI liver mass protocol recommended for further evaluation. 4. Left adrenal adenoma measuring 1.9 cm. ATED BY: SEBASTIÁN MCKEON MD DICTATED DATE/TIME: 09/05/25 1016 SIGNED BY: SEBASTIÁN MCKEON MD SIGNED DATE/TIME: 09/05/25 1016 CC: [place] [id number] Ph: [phone] DIAGNOSTIC IMAGING Diagnostic Imaging Report : [id number] Signed PATIENT: ROSA HUFF ACCT: [id number] UNIT: [id number] : 1970 LOC: OVERFLOW ROOM / BED: [address] [place] [address] / A AGE / SEX: 55 / F ADM STATUS: ADM IN SERVICE 1612 ORDERING PHYSICIAN: BRIGID MYERS PROCEDURE(s): LIVUS - LIVER REASON: Transaminitis, rule out acute hepatitis ORDER NUMBER(s): [id number], ACCESSION NUMBER(s): [id number] Technique: Real-time ultrasound imaging of the abdomen was performed with grayscale and color Doppler. Indication: Transaminitis, rule out acute hepatitis Comparison: None Findings: Liver measures 14.3 cm. It is increased in echogenicity and echotexture. There is a left hepatic lobe heterogeneous mass measuring 7.4 x 6.9 cm. There is internal vascularity. Left hepatic lobe echogenic mass measuring 3.3 cm. Gallbladder is removed. The common bile duct measures 5 mm. No intrahepatic biliary ductal dilatation. The right kidney measures 10.7 cm. There is no hydronephrosis or sonographic evidence of nephrolithiasis. The visualized portion of the pancreas is unremarkable. Impression: Heterogeneous masses within the liver most prominently in the left hepatic lobe measuring 7.4 cm. Recommend multiphasic MRI abdomen with and without contrast. Cholecystectomy. ATED BY: FATMATA BURT MD DICTATED DATE/TIME: 09/05/251646 SIGNED BY: FATMATA BURT MD SIGNED DATE/TIME: 09/05/251646 CC: [place] [id number] Ph: [phone] DIAGNOSTIC IMAGING Diagnostic Imaging Report : [id number] Signed PATIENT: ROSA HUFF ACCT: [id number] UNIT: [id number] : 1970 [facility] AGE / SEX: 55 / F ADM STATUS: ADM IN SERVICE 0008 ORDERING PHYSICIAN: BRIGID MYERS PROCEDURE(s): CXR1 - CHEST XRAY 1 VIEW REASON: Metastasis lesion ORDER NUMBER(s): [id number], ACCESSION NUMBER(s): [id number] CHEST RADIOGRAPH Indication: Metastasis lesion Technique: XY CHEST XRAY 1 VIEW Comparison: None FINDINGS: The cardiac silhouette is unremarkable. The lungs demonstrate basilar airspace opacity. The pulmonary vasculature is unremarkable. There is no pleural effusion. There is no pneumothorax. IMPRESSION: Left basilar airspace opacities ATED BY: FATMATA BURT MD DICTATED DATE/TIME: 09/05/251900 SIGNED BY: FATMATA BURT MD SIGNED DATE/TIME: 09/05/251900 CC: [place] [id number] Ph: [phone] DIAGNOSTIC IMAGING Diagnostic Imaging Report : [id number] Signed PATIENT: ROSA HUFF ACCT: [id number] UNIT: [id number] : 1970 LOC: EAST ROOM / BED: [facility] / B AGE / SEX: 55 / F ADM STATUS: ADM IN SERVICE 1205 ORDERING PHYSICIAN: BRIGID MYERS RESIDENT PROCEDURE(s): ABPEL - CT AB PELVIS W WO CON-IV ONLY REASON: HEMANGIOMA/LIVER MASS ORDER NUMBER(s): [id number], ACCESSION NUMBER(s): [id number] Exam: CT CT AB PELVIS W WO CON-IV ONLY History: HEMANGIOMA/LIVER MASS COMPARISON: CT CT AB PEL WO CON-NO ORAL OR IV on DOS: 09/05/25 Technique: Multidetector spiral CT of the abdomen and pelvis was performed from lung bases to pubic symphysis. Intravenous contrast was administered during this examination. Portal venous imaging was obtained. Axial, coronal and sagittal multiplanar reformats were performed by the technologist on a separate workstation. Radiation Dose : 1. Abdomen/Pelvis: CTDIvol 29.91mGy, DLP 3227.28 mGy*cm. CONTRAST: Type of contrast: Omnipaque 350 Contrast injected: 100 ml Findings: Lung Bases: No acute or significant lung base finding. Normal heart size. No pleural or pericardial effusion. Liver: Hypervascular mass centered within hepatic segment 2 demonstrating discontinuous peripheral nodular enhancement matching arterial blood pool. No additional liver lesions. No abnormal arterial enhancement with washout. Gallbladder and biliary Tree: Gallbladder is surgically absent. Spleen: Unremarkable Pancreas: The pancreas is normal in appearance without focal lesions or abnormal enhancement. Adrenal Glands: People left adrenal anal measuring 1.9 cm Kidneys: No hydronephrosis. Bladder: Unremarkable Bowel: Grossly stable mild inflammatory changes surrounding the proximal and mid sigmoid colon. Ascites: Absent Lymphadenopathy: No mesenteric, retroperitoneal or periportal lymphadenopathy. Abdominal wall and Mesentery: Unremarkable. Vasculature: The visualized abdominal aorta is normal in size and caliber. Abdominal and pelvic vessels demonstrate normal enhancement. Pelvic Organs: Unremarkable Musculoskeletal: No aggressive focal bony lesions, acute fractures or dislocation. IMPRESSION: Stable mild acute uncomplicated sigmoid diverticulitis. Left hepatic hemangioma. Radiation optimization: All CT scans at this facility use at least one of these dose optimization techniques: automated exposure control mA and/or kV adjustment per patient size (includes targeted exams where dose is matched to clinical indication) or iterative reconstruction. ATED BY: FRANCY MEDINA MD DICTATED DATE/TIME: 09/06/251333 SIGNED BY: FRANCY MEDINA MD SIGNED DATE/TIME: 09/06/251333 CC: Condition at Discharge: Stable Final Diagnosis/Problems List # acute sigmoid diverticulitis # diffuse acute abdominal pain likely due to above # history of colonic polyp # hepatic hemangioma left lobe of liver # Transaminitis #hypoattenuating lesion in the left hepatic lobe measuring 7.4 cm, # GERD # hyperlipidemia # anxiety, insomnia #Left adrenal adenoma measuring 1.9 cm. Discharge Disposition: Home Discharge Instruct/Medications Diet: See Comment Diet comment: Full liquid diet for 7 days then gradually advanced as tolerated Activity: No Restrictions, As Tolerated Follow Up/Referral: Please follow up at the discharge clinic in 1 week Please follow up with the primary care physician in 1-2 weeks Please follow up with the paring machine operator for further evaluation and care Medications: Keflex 500 mg p.o. b.i.d. for 7 days Metronidazole 500 mg t.i.d. for 7 Ibuprofen 400 mg q.8h PRN as prescribed after meal Pantoprazole 40 mg p.o. daily as prescribed Scheduled Cephalexin (Keflex Capsule), 2 CAP PO BID Cholecalciferol (Vitamin D-3 Super Strengt), 1 TAB PO DAILY, (Reported) Ibuprofen (Ibuprofen), 1 TAB PO Q6HPRN Metronidazole (Metronidazole), 500 MG PO TID Pantoprazole Sodium Sesquihydr (Pantoprazole Sodium), 40 MG PO DAILY Rosuvastatin Calcium (Rosuvastatin Calcium), 1 TAB PO DAILY, (Reported) Sertraline Hcl (Sertraline Hcl), 1 TAB PO DAILY, (Reported) Miscellaneous Medications Trazodone HCl (Trazodone Hydrocloride), PO, (Reported) Discharge Statement: "Patient was advised to return to the ER or call 911 if any headaches, dizziness, shortness of breath, chest pain, abdominal pain, bleeding, fevers, or worsening of medical condition. Patient was counseled about treatment plan, medications, possible side effects, patientverbalized understanding. All questions were answered to the best of my ability. This discharge took greater then 30 minutes in planning, reviewing documentation, counseling the patient, and discussing with other team members." ASSESSMENT ASSESSMENT Assessment Date of Service: Sep 07, 2025 Billing Provider: CHIQUIS WRIGHT MD Common Visit Codes: 35540-EKS/OBS DISCH DAY >30min BRIGID MYERS RESIDENT Sep 07, 2025 11:45 CHIQUIS WRIGHT MD Sep 07, 2025 19:20
[2025-09-07 11:59] LABS: Hepatitis C Antibody Negative (Negative)
[2025-09-07 13:00] VITALS: BP 130/79; PULSE 69; RESP 16; TEMP 97.7; O2SAT 97
[2025-09-07] MEDS ORDERED: PANT40T PO (15:42)
[2025-09-07] MEDS ORDERED: IBUP-1453 PO (15:42)
[2025-09-07 17:04] VITALS: TEMP 36.5
== END 2025-09-07 17:21 | disposition home or self-care (01) | DRG 392 ==
LOC: ER 09:29 → OVERFLOW 16:08 → EAST 22:00
PROVIDERS: ADMIT Student in an Organized Health Care Education/Training Program; ATTEND Student in an Organized Health Care Education/Training Program
DX: K57.32 Diverticulitis of large intestine without perforation or abscess without bleeding (principal); K21.9 Gastro-esophageal reflux disease without esophagitis; K59.00 Constipation, unspecified; G47.00 Insomnia, unspecified; F41.9 Anxiety disorder, unspecified; E78.5 Hyperlipidemia, unspecified; D35.02 Benign neoplasm of left adrenal gland; K76.9 Liver disease, unspecified; Z90.49 Acquired absence of other specified parts of digestive tract; Z80.0 Family history of malignant neoplasm of digestive organs; Z86.0100 Personal history of colon polyps, unspecified; Z79.899 Other long term (current) drug therapy
CPT/HCPCS: 36415; 71045; 74176; 74178; 76705; 80053; 80074; 81003; 82105; 82306; 82378; 82607; 82746; 83036; 83690; 83735; 85025; G0378; J1885; J1956; J2405; J2470; J3490